=== PATIENT | female | born 1955 | race Caucasian/White ===

== ENCOUNTER 2016-07-09 15:48 | Emergency (ER) | payer OTHER ==
[2016-07-09] MEDS ORDERED: Ibuprofen TAB* 600 MG PO ONE (16:55)
--- NOTE | 2016-07-09 17:39 | RAD ---
INDICATION: Left wrist injury. TECHNIQUE: 3 views of the left wrist were obtained. FINDINGS: There is dorsal soft tissue swelling. The bones appear osteopenic and in normal alignment. No fracture is seen. IMPRESSION: SOFT TISSUE SWELLING, NO FRACTURE IS SEEN. IF THE PATIENT'S SYMPTOMS PERSIST, RECOMMEND FOLLOW-UP IMAGING.
--- NOTE | 2016-07-09 17:53 | UC ---
Upper Extremity HPI - HPI Summary HPI Summary: patient fell landing backward onto her left wrist this afternoon. sever pain, swelling along the radial side of the wrist. nausea and lightheaded due to pain - History of Current Complaint Chief Complaint: UCUpperExtremity Stated Complaint: WRIST INJURY Time Seen by Provider: 07/09/16 16:47 Hx Obtained From: Patient ?: No Onset/Duration: Sudden Onset, Lasting Hours Severity Initially: Severe Severity Currently: Severe Location Of Pain: Is Discrete @ - left wrist Character: Sharp, Throbbing Aggravating Factor(s): Movement Alleviating Factor(s): Nothing Associated Signs And Symptoms: Positive: Swelling, Weakness - Allergies/Home Medications Allergies/Adverse Reactions: Allergies Allergy/AdvReac Type Severity Reaction Status Date / Time Penicillins Allergy Hives Verified 07/09/16 16:29 Home Medications: Home Medications NK [No Home Medications Reported] 07/09/16 [History Confirmed 07/09/16] PMH/Surg Hx/FS Hx/Imm Hx Previously Healthy: Yes Cancer History Of: Denies: Breast Cancer - Surgical History Surgical History: Yes Surgery Procedure, Year, and Place: c section x2 - Family History Known Family History: Negative: Cardiac Disease, Hypertension - Social History Alcohol Use: Daily Alcohol Amount: wine Substance Use Type: None Smoking Status (MU): Never Smoked Tobacco Review of Systems Constitutional: Negative Skin: Bruising Eyes: Negative ENT: Negative Respiratory: Negative Cardiovascular: Negative Gastrointestinal: Negative Genitourinary: Negative Motor: Negative Neurovascular: Negative Musculoskeletal: Arthralgia, Decreased ROM, Edema, Myalgia Neurological: Negative Psychological: Anxious All Other Systems Reviewed And Are Negative: Yes Physical Exam Triage Information Reviewed: Yes Appearance: Well-Nourished, Ill-Appearing, Pain Distress Vital Signs: Initial Vital Signs Temp 97.2 F 07/09/16 16:25 Pulse 58 07/09/16 16:25 Resp 16 07/09/16 16:25 BP 187/88 07/09/16 16:25 Pulse Ox 100 07/09/16 16:25 Vital Signs Reviewed: Yes Eye Exam: Normal ENT Exam: Normal Dental Exam: Normal Neck exam: Normal Neck: Positive: Supple, Nontender, No Lymphadenopathy Respiratory Exam: Normal Respiratory: Positive: Chest non-tender, Lungs clear, Normal breath sounds Cardiovascular Exam: Normal Cardiovascular: Positive: RRR, No Murmur, Pulses Normal Abdominal Exam: Normal Abdomen Description: Positive: Nontender, No Organomegaly, Soft Bowel Sounds: Positive: Present Musculoskeletal Exam: Normal Musculoskeletal: Positive: Strength Limited @ - patient is refusing to faculty research assistant wrist, state the pain is too great, small amount of brusing and swelling over the posterior aspect of wrist, ROM Limited @, Edema @ Neurological Exam: Normal Neurological: Positive: Alert, Muscle Tone Normal Psychological Exam: Normal Skin Exam: Normal Upper Extremity Course/Dx - Course Course Of Treatment: hx obtained, exam performed, meds reviewed, xray neg for fracture. gabino and patients wrist splint applied. - Differential Dx/Diagnosis Differential Diagnosis/HQI/PQRI: Bursitis, Contusion, Fracture (Closed), Strain , Sprain Provider Diagnoses: wrist sprain Discharge - Discharge Plan Condition: Stable Disposition: HOME Patient Education Materials: Wrist Sprain (ED) Additional Instructions: 1. continue to ice for the next 2 days. 2. Ibuprofen for pain and swelling 3. continue to use the splint for support. 4. if pain does not improve iin the next week, follow up for repeat imaging.
[2016-07-09 18:09] VITALS: BP 186/92
== END 2016-07-09 18:10 | disposition home or self-care (01) ==
LOC: UCEAST 15:48
DX: S63.502A Unspecified sprain of left wrist, initial encounter (principal); W19.XXXA Unspecified fall, initial encounter; Z88.0 Allergy status to penicillin
CPT/HCPCS: 99213; A9270-GY; G0463

== ENCOUNTER 2017-03-18 10:56 | Emergency (ER) | payer OTHER ==
--- NOTE | 2017-03-18 12:04 | RAD ---
INDICATION: Fall with injury to the LEFT side of the face. LEFT cheek pain. COMPARISON: No relevant prior exams available on the [facility] [place] PACS for comparison. TECHNIQUE: Multidetector CT base of the skull through mandible without contrast. Multiplanar reformation. REPORT: Artifact from dental amalgam. Mild soft tissue edema superficial to the LEFT zygomatic arch. No loculated soft tissue hematoma evident. Unremarkable orbital contents. The orbital and maxillary sinus margins, zygomatic arches, lamina papyracea, base of the maxilla, pterygoid plates, and nasal bones are intact. The mandible is intact. Normal temporal mandibular joint alignment. Mild RIGHT greater than LEFT maxillary sinus mucosal thickening. IMPRESSION: Negative for maxillofacial fracture. Mild soft tissue edema superficial to the LEFT zygomatic arch.
--- NOTE | 2017-03-18 12:27 | RAD ---
Indication: LEFT knee pain post fall. Comparison: No relevant prior exams available on the [facility] [place] for comparison. Technique: LEFT knee: AP, tunnel, sunrise, crosstable lateral views. Report: Moderately large suprapatellar joint effusion. Nondisplaced sagittal fracture at the lateral margin of the patella reference the sunrise view. Only minimal articular surface discontinuity. No additional fracture evident. Negative for significant joint space narrowing or other chronic arthropathic change. Mild anterior soft tissue swelling. IMPRESSION: Nondisplaced intra-articular fracture at the patella. Associated joint effusion.
[2017-03-18] MEDS ORDERED: Ketorolac INJ* 60 MG/2 ML VIAL IM ONE (12:58)
[2017-03-18] MEDS ORDERED: HYDROcodone/ACETAMIN 5-325 MG* 1 TAB PO ONE (12:58)
[2017-03-18 14:44] VITALS: BP 149/82
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
== END 2017-03-18 14:43 | disposition home or self-care (01) ==
LOC: ED 10:56
DX: S82.092A Other fracture of left patella, initial encounter for closed fracture (principal); W01.0XXA Fall on same level from slipping, tripping and stumbling without subsequent striking against object, initial encounter; Y93.01 Activity, walking, marching and hiking; Z88.0 Allergy status to penicillin
CPT/HCPCS: 70486; 96372; 99282; J1885